=== PATIENT | female | born 2005 | race Caucasian/White ===

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

== ENCOUNTER → 2023-09-08 | Outpatient (CLI) | payer BC | END | disposition home or self-care (01) | LOC: MRI 12:53 | DX: R51.9 Headache, unspecified (principal) | CPT/HCPCS: 70551 ==

== ENCOUNTER 2024-01-11 18:26 | Emergency (ER) | payer BC ==
[~2024-01-11] VITALS: Ht 167.6 cm; Wt 64.0 kg
[2024-01-11 19:40] VITALS: O2SAT 100
[2024-01-11] MEDS: SODIUM CHLORIDE 0.9% 1,000 ML IV ONE (21:31)
[2024-01-11] MEDS: METOCLOPRAMIDE HCL 10MG/2ML VIAL IV ONE (21:32)
[2024-01-11] MEDS: KETOROLAC 30MG/ML VIAL IV STA (21:32)
[2024-01-11] MEDS: DIPHENHYDRAMINE 25MG CAPSULE PO ONE (21:33)
[2024-01-11 22:47] VITALS: BP 128/84; PULSE 70; RESP 16; TEMP 36.78072; O2SAT 100
== END 2024-01-11 23:15 | disposition home or self-care (01) ==
LOC: ER 18:26
DX: R51.9 Headache, unspecified (principal); Z90.49 Acquired absence of other specified parts of digestive tract
CPT/HCPCS: 96361; 96374; 96375; 99284; Q0163; J1885; J2765; J7030; Z7610 ×2

== ENCOUNTER → 2024-02-17 | Outpatient (CLI) | payer BC ==
[2024-02-17 10:55] LABS: BASOPHILS % 0.7 % (0.0-2.0); HEMATOCRIT. 35.9 % (36.0-48.0); HEMOGLOBIN. 11.3 g/dL (12.0-16.0); LYMPHOCYTES % 45.6 % (20.0-50.0); MEAN CORPUSCULAR HGB CONC 31.5 g/dL (31.0-37.0); MEAN CORPUSCULAR VOLUME 85.7 fL (81.0-99.0); MONOCYTES % 8.7 % (2.0-8.0); PLATELET 249 x1000/uL (130-400); RED BLOOD CELL COUNT 4.19 mill/uL (4.2-5.4); RED CELL DISTRIBUTION WIDTH 15.2 % (11.6-14.6); WHITE BLOOD COUNT 5.9 x1000/uL (4.5-11.0)
[2024-02-17 11:05] LABS: CARBON DIOXIDE 26 mEq/L (21-32); CHLORIDE 107 mEq/L (98-107); SODIUM 138 mEq/L (136-145)
[2024-02-17 11:06] LABS: CALCIUM 9.3 mg/dL (8.7-10.4)
[2024-02-17 11:11] LABS: CREATININE 0.8 mg/dL (0.6-1.0); GLUCOSE 87 mg/dL (70-105); TRIGLYCERIDE 58 mg/dL (0-150); UREA NITROGEN BLOOD 7 mg/dL (9-23)
[2024-02-17 11:12] LABS: ALANINE AMINOTRANSFERASE 14 IU/L (10-49); ALBUMIN 4.2 g/dL (3.2-4.8); ASPARTATE AMINOTRANSFERASE 18 IU/L (<34); LDL CHOLESTEROL 94 mg/dL (5-100)
[2024-02-17 11:13] LABS: BILIRUBIN TOTAL 0.6 mg/dL (0.1-1.0); CHOLESTEROL 143 mg/dL (<200); HDL CHOLESTEROL 50 mg/dL (>65); PROTEIN TOTAL 7.4 g/dL (6.0-8.3)
[2024-02-17 14:40] LABS: CLARITY URINE CLEAR (CLEAR); COLOR URINE YELLOW (YELLOW); GLUCOSE URINE NEGATIVE (NEGATIVE); KETONES URINE NEGATIVE (NEGATIVE); LEUKOCYTE ESTERASE URINE TRACE (NEGATIVE); NITRITE URINE POSITIVE (NEGATIVE); OCCULT BLOOD URINE NEGATIVE (NEGATIVE); PROTEIN URINE NEGATIVE (NEGATIVE); SPECIFIC GRAVITY URINE 1.012 (1.005-1.030); UROBILINOGEN URINE 0.2 E.U./dL (0.2-1.0)
[2024-02-17 14:56] LABS: BACTERIA URINE 4+; RBC URINE 0-2 /hpf (0-2); SQUAMOUS EPITHELIAL CELL URINE FEW /lpf (RARE/1+); WBC URINE 0-2 /hpf (0-2); YEAST URINE NONE SEEN
== END | disposition home or self-care (01) ==
LOC: LAB 10:31
PROVIDERS: ATTEND Internal Medicine
DX: Z13.220 Encounter for screening for lipoid disorders (principal); Z11.4 Encounter for screening for human immunodeficiency virus [HIV]; Z11.3 Encounter for screening for infections with a predominantly sexual mode of transmission; Z00.00 Encounter for general adult medical examination without abnormal findings; Z13.1 Encounter for screening for diabetes mellitus
CPT/HCPCS: 36415; 80053; 80061; 81003; 83036; 85025

== ENCOUNTER 2025-02-16 21:24 | Inpatient (IN) | payer BC ==
[~2025-02-16] VITALS: Ht 167.6 cm; Wt 77.1 kg
[2025-02-16 21:40] VITALS: O2SAT 100
[2025-02-16] MEDS: SODIUM CHLORIDE 0.9% (SEPSIS BOLUS) IV ONE (22:09)
[2025-02-16] MEDS: CEFTRIAXONE 1GM/50ML 50 ML IV ONE (22:17)
[2025-02-16 22:56] LABS: HEMATOCRIT. 39.6 % (36.0-48.0); HEMOGLOBIN. 13.2 g/dL (12.0-16.0); MEAN PLATELET VOLUME 8.4 fl (7.4-10.4); PLATELET 253 x1000/uL (130-400); RED BLOOD CELL COUNT 4.38 mill/uL (4.2-5.4); RED CELL DISTRIBUTION WIDTH 13.5 % (11.6-14.6)
[2025-02-16] MEDS: ONDANSETRON HCL 4MG/2ML INJ IV ONE (23:07)
[2025-02-16] MEDS: MORPHINE SULFATE 4 MG/ML INJ (FOR IV/IM USE) IV ONE (23:08)
[2025-02-16 23:12] LABS: CREATININE 0.9 mg/dL (0.6-1.0); UREA NITROGEN BLOOD 7 mg/dL (9-23)
[2025-02-16 23:13] LABS: ASPARTATE AMINOTRANSFERASE 14 IU/L (<34)
[2025-02-16 23:14] LABS: BILIRUBIN DIRECT 0.2 mg/dL (<=3.0); BILIRUBIN TOTAL 0.5 mg/dL (0.1-1.0); PROTEIN TOTAL 7.6 g/dL (6.0-8.3)
[2025-02-16 23:16] LABS: HCG SCREEN NEGATIVE
[2025-02-17] VITALS (7 sets, daily range): BP systolic 109–122; BP diastolic 65–74; PULSE 80–101; RESP 9–20; TEMP 36.7–37.4744; O2SAT 93–100
[2025-02-17 00:18] LABS: BAND% 1.0 % (1.0-6.0); LYMPHOCYTES % MANUAL 7.0 % (20.0-60.0); MONOCYTES % MANUAL 4.0 % (2.0-8.0); NEUTROPHILS % MANUAL 88.0 % (45.0-75.0); PLATELET ESTIMATE NORMAL
[2025-02-17 01:21] LABS: CLARITY URINE CLEAR (CLEAR); COLOR URINE YELLOW (YELLOW); GLUCOSE URINE NEGATIVE (NEGATIVE); KETONES URINE TRACE (NEGATIVE); LEUKOCYTE ESTERASE URINE 2+ (NEGATIVE); NITRITE URINE NEGATIVE (NEGATIVE); OCCULT BLOOD URINE TRACE (NEGATIVE); PH URINE 6.5 (4.5-8.0); PROTEIN URINE NEGATIVE (NEGATIVE); SPECIFIC GRAVITY URINE 1.026 (1.005-1.030); UROBILINOGEN URINE 0.2 E.U./dL (0.2-1.0)
[2025-02-17] MEDS: ACETAMINOPHEN 325MG TABLET PO SCH (02:16)
[2025-02-17 03:17] LABS: SQUAMOUS EPITHELIAL CELL URINE FEW /lpf (RARE/1+)
[2025-02-17 03:18] LABS: RBC URINE 0-2 /hpf (0-2)
[2025-02-17 03:19] LABS: BACTERIA URINE TRACE
[2025-02-17] MEDS ORDERED: DOCUSATE SODIUM 100MG CAPSULE PO PRN (03:45)
[2025-02-17] MEDS ORDERED: IPRATROPIUM/ALBUTEROL 0.5-3(2.5)MG/3ML NEB HHN PRN (03:45)
[2025-02-17] MEDS ORDERED: ACETAMINOPHEN 325MG TABLET PO PRN (03:45)
[2025-02-17] MEDS ORDERED: ONDANSETRON HCL 4MG/2ML INJ IV PRN (03:45)
[2025-02-17] MEDS ORDERED: MAGNESIUM/ALUMINUM HYDROXIDE/SIMETHICONE 30ML UDC PO PRN (03:45)
[2025-02-17] MEDS ORDERED: PENICILLIN G POTASSIUM 2.5 MMU in DEXTROSE 5% WATER 50 ML IV SCH (03:45)
[2025-02-17] MEDS ORDERED: NAPR-1486 PO (04:20)
[2025-02-17] MEDS ORDERED: IOHEXOL-300 100 ML BOTTLE ONE (04:45)
[2025-02-17] MEDS: LIDOCAINE 5% PATCH TOP SCH (04:56)
[2025-02-17] MEDS: ACETAMINOPHEN 325MG TABLET PO PRN (07:52)
[2025-02-17] MEDS ORDERED: PHENOL/SODIUM PHENOLATE 1.4% SRPAY 177ML MM PRN (08:15)
[2025-02-17] MEDS: FAMOTIDINE 20MG TABLET PO SCH (08:27)
[2025-02-17 14:23] LABS: MONOTEST NEGATIVE (NEGATIVE)
[2025-02-17 14:35] LABS: HEPATITIS C AB NON REACTIVE (Neg) (Negative)
[2025-02-17] MEDS ORDERED: IBUP-2028 MT (14:39)
[2025-02-17] MEDS ORDERED: FAMO20TA8 PO (14:39)
[2025-02-17] MEDS ORDERED: AMOX1TAB15 MT (14:39)
[2025-02-17] MEDS ORDERED: PHEN177S75 MM (14:39)
[2025-02-17] MEDS: GUAIFENESIN 200MG/10ML SUGAR FREE UDC PO PRN (15:10)
[2025-02-17] MEDS ORDERED: CEFTRIAXONE 1GM/50ML 50ML IV SCH (22:00)
[2025-02-17] MEDS ORDERED: CEFAZOLIN 1000MG PREMIX 50ML IV SCH (22:00)
== END 2025-02-17 17:11 | disposition home or self-care (01) | DRG 872 ==
LOC: ER 21:24 → 3WST 02-17 02:12 → EDBEDREQDT 02-17 02:58 → EDBEDREQTM 02-17 02:58 → EDBEDREQ 02-17 02:58 → ENRESERV 02-17 03:04
PROVIDERS: ADMIT Internal Medicine; ATTEND Internal Medicine
DX: A41.9 Sepsis, unspecified organism (principal); N39.0 Urinary tract infection, site not specified; J03.90 Acute tonsillitis, unspecified; B95.5 Unspecified streptococcus as the cause of diseases classified elsewhere; Z90.49 Acquired absence of other specified parts of digestive tract; Z79.899 Other long term (current) drug therapy
CPT/HCPCS: 36415; 71045; 74177; 80048; 80076; 81003; 82550; 83605; 84145; 84703; 85025; 86308; 86705; 87070; 87340; 87430; 99291; J0696; J2270; J2405; J7030; Q9967

== ENCOUNTER → 2025-03-28 | Outpatient (CLI) | payer BC ==
[~2025-03-28] MED LIST: AMOX1TAB15 MT; FAMO20TA8 PO; IBUP-2028 MT; PHEN177S75 MM
[2025-03-28 09:08] LABS: BASOPHILS % 0.7 % (0.0-2.0); EOSINOPHILS % 1.6 % (0.0-5.0); HEMATOCRIT. 36.7 % (36.0-48.0); HEMOGLOBIN. 12.2 g/dL (12.0-16.0); LYMPHOCYTES % 43.9 % (20.0-50.0); MEAN PLATELET VOLUME 8.4 fl (7.4-10.4); MONOCYTES % 8.7 % (2.0-8.0); NEUTROPHILS % 45.1 % (40.0-76.0); PLATELET 281 x1000/uL (130-400); RED BLOOD CELL COUNT 3.99 mill/uL (4.2-5.4); RED CELL DISTRIBUTION WIDTH 13.3 % (11.6-14.6)
[2025-03-28 09:24] LABS: CREATININE 0.8 mg/dL (0.6-1.0)
[2025-03-28 09:25] LABS: TRIGLYCERIDE 70 mg/dL (0-150); UREA NITROGEN BLOOD 8 mg/dL (9-23)
[2025-03-28 09:26] LABS: ASPARTATE AMINOTRANSFERASE 18 IU/L (<34); LDL CHOLESTEROL 107 mg/dL (5-100)
[2025-03-28 09:27] LABS: BILIRUBIN TOTAL 0.5 mg/dL (0.1-1.0); PROTEIN TOTAL 7.4 g/dL (6.0-8.3)
[2025-03-28 09:32] LABS: VITAMIN B12 SERUM 422 pg/mL (211-911)
[2025-03-28 13:19] LABS: CLARITY URINE CLOUDY (CLEAR); COLOR URINE ORANGE (YELLOW); GLUCOSE URINE NEGATIVE (NEGATIVE); KETONES URINE NEGATIVE (NEGATIVE); LEUKOCYTE ESTERASE URINE 2+ (NEGATIVE); NITRITE URINE NEGATIVE (NEGATIVE); OCCULT BLOOD URINE 3+ (NEGATIVE); PH URINE 6.5 (4.5-8.0); PROTEIN URINE 1+ (NEGATIVE); SPECIFIC GRAVITY URINE 1.021 (1.005-1.030); UROBILINOGEN URINE 0.2 E.U./dL (0.2-1.0)
[2025-03-28 13:36] LABS: RBC URINE 25-50 /hpf (0-2)
[2025-03-28 13:37] LABS: AMORPHOUS SEDIMENT URINE 1+ /lpf; BACTERIA URINE 1+; SQUAMOUS EPITHELIAL CELL URINE 1+ /lpf (RARE/1+)
== END | disposition home or self-care (01) ==
LOC: LAB 08:03
PROVIDERS: ATTEND Internal Medicine
DX: D64.9 Anemia, unspecified (principal); Z00.00 Encounter for general adult medical examination without abnormal findings
CPT/HCPCS: 36415; 80053; 80061; 81001; 81003; 82607; 82728; 83036; 83540; 83550; 85025

== ENCOUNTER → 2025-03-28 | Outpatient (CLI) | payer BC ==
[2025-03-28 09:29] LABS: T4 FREE 1.43 ng/dL (0.89-1.76)
[2025-03-29 10:10] LABS: C-PEPTIDE 2.9 ng/mL (1.1-4.4); INSULIN 18.3 uIU/mL (2.6-24.9)
[2025-03-29 13:07] LABS: THYROID PEROXIDASE ANTIBODY 177 IU/mL (0-34)
== END | disposition home or self-care (01) ==
LOC: LAB 08:11
PROVIDERS: ATTEND Internal Medicine Endocrinology, Diabetes & Metabolism
DX: E04.9 Nontoxic goiter, unspecified (principal); R73.9 Hyperglycemia, unspecified
CPT/HCPCS: 36415; 83519; 83525; 84206; 84439; 84443; 84681; 86337; 86376